=== PATIENT | female | born 1985 | race African-American/Black ===

== ENCOUNTER 2017-03-31 16:11 | Emergency (ER) | payer MEDICAID, OTHER ==
[2017-03-31 16:40] VITALS: BP 125/98
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
--- NOTE | 2017-04-01 10:08 | CR ---
Lumbar spine: AP and lateral views of the lumbar spine were obtained. Diffuse Schmorl's node deformities are seen. Vertebral body heights are otherwise maintained. Mild scoliosis is present. Pedicles as well as transverse and spinous processes are intact. Sacroiliac joints are unremarkable. No subluxation or fracture is seen. Impression: 1. Diffuse Schmorl's node deformities and minimal scoliosis. Diagnostic code #2
== END 2017-03-31 19:02 | disposition home or self-care (01) ==
LOC: JD.ED 16:11
DX: S39.012A Strain of muscle, fascia and tendon of lower back, initial encounter (principal); X50.0XXA Overexertion from strenuous movement or load, initial encounter
CPT/HCPCS: 72100; 72100-26; 81001; 81025; 99283

== ENCOUNTER 2017-10-20 20:28 | Emergency (ER) | payer BC ==
[2017-10-20 20:38] VITALS: BP 143/92
[2017-10-20] MEDS ORDERED: Sodium Chloride 0.9% 1,000 ML IV ONE (21:00)
[2017-10-20] MEDS ORDERED: HYDROmorphone 0.5 MG/0.5 ML Syringe IVPUSH ONE (21:00)
--- NOTE | 2017-10-20 21:12 | EDM.PDOC ---
ED HPI GENERAL MEDICAL PROBLEM - General Chief Complaint: Upper Extremity Injury/Pain Stated Complaint: poss arm pains Time Seen by Provider: 10/20/17 20:36 Source of Information: Reports: Patient, RN Notes Reviewed History Limitations: Reports: No Limitations - History of Present Illness INITIAL COMMENTS - FREE TEXT/NARRATIVE: The patient states that she has sickle cell disease, and has suffered numerous sickle cell crises over her life. She moved from [facility] to the [facility] in 2012, and has suffered only one sickle cell crisis since moving here. She states that she is ordinarily treated with IV fluid and pain medication, and her crisis usually resolves quickly. The patient takes prophylactic folic acid. She states that she developed whole body pain, and particularly right upper extremity pain yesterday, 10/19/2017. She took Tylenol, and her pain was adequately controlled, however, today her pain is worse, and her right upper extremity pain is now "unbearable". She states that her current symptoms are similar to prior sickle cell crises. No recent illness. She states that she has had a decreased appetite, and notes a bitter taste in her mouth since yesterday. No recent fever, chills, nausea, vomiting, constipation, diarrhea, or urinary symptoms. No recent shortness of breath, chest pain, or palpitations. 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 A 2-view chest radiograph obtained 05/05/2017 was negative. 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 ED EXAM, GENERAL - Physical Exam Exam: See Below Exam Limited By: No Limitations General Appearance: Alert, WD/WN, No Apparent Distress Eye Exam: Bilateral Eye: Normal Inspection Ears: Normal External Exam, Hearing Grossly Normal Nose: Normal Inspection, No Blood Throat/Mouth: Normal Inspection, Normal Lips, Normal Voice, No Airway Compromise Head: Atraumatic, Normocephalic Neck: Normal Inspection, Full Range of Motion Respiratory/Chest: No Respiratory Distress, Lungs Clear, Normal Breath Sounds, No Accessory Muscle Use Cardiovascular: Normal Peripheral Pulses, Regular Rate, Rhythm, No Gallop, No JVD, No Murmur, No Rub Peripheral Pulses: 4+: Radial (L), Radial (R) GI/Abdominal: Normal Bowel Sounds, Soft, Non-Tender, No Organomegaly, No Distention, No Abnormal Bruit, No Mass (Female) Exam: Deferred Rectal (Female) Exam: Deferred Back Exam: Normal Inspection, Full Range of Motion, NT Extremities: Normal Inspection, Normal Range of Motion, Non-Tender, No Pedal Edema, Normal Capillary Refill Neurological: Alert, Oriented, Normal Cognition, No Motor/Sensory Deficits Psychiatric: Normal Affect Skin Exam: Warm, Dry, Intact, Normal Color, No Rash Course - Vital Signs Last Recorded V/S: Last Vital Signs Temp 36.1 C 10/20/17 20:35 Pulse 93 10/20/17 20:35 Resp BP 143/92 H 10/20/17 20:35 Pulse Ox 100 10/20/17 20:35 - Orders/Labs/Meds Meds: Medications Discontinued Medications Generic Name Dose Route Start Last Admin Trade Name Freq PRN Reason Stop Dose Admin Hydromorphone HCl 0.5 mg 10/20/17 21:00 10/20/17 21:14 Dilaudid IVPUSH 10/20/17 21:01 0.5 mg ONETIME ONE Administration Sodium Chloride 1,000 mls @ 999 mls/hr 10/20/17 21:00 12 21:13 Normal Saline IV 10/20/17 22:00 999 mls/hr ONETIME ONE Administration - Re-Assessments/Exams Free Text/Narrative Re-Assessment/Exam: 10/20/17 21:02 The patient presents with whole body pain, and particularly, pain of her entire right upper extremity, consistent with numerous previous sickle cell crises. I have ordered 1 L normal saline bolus, 0.5 mg IV Dilaudid, and supplemental oxygen at 4-6 L per NC. I expect that the patient will require repeated doses of Dilaudid. Current guidelines do not recommend any particular blood or imaging studies, unless an infection is suspected, which is not in this case. 10/20/17 22:17 The patient is just finishing 1 L normal saline. She states that she feels "all better", and is ready to go home. I will have her follow-up with Dr. Lisa Gaviria as a PCP. Departure - Departure Time of Disposition: 22:18 Disposition: Home, Self-Care 01 Condition: Good Clinical Impression: Sickle cell crisis - Discharge Information Referrals: PCP,None [Primary Care Provider] - Lisa Gaviria MD [Physician] - Forms: ED Department Discharge Additional Instructions: You were seen in the emergency room for whole-body pain, in particular, extreme right arm pain. You were treated for a sickle cell crisis with IV fluid and IV pain medication. Your symptoms significantly improved. We recommend that you continue taking folic acid daily. We also recommend that you take a multivitamin WITHOUT iron, but DOES include Vitamin D and Calcium, daily. These are available [id number], but talk to your pharmacist to find the right one. Stay well hydrated. Continue to take your rifampin daily, as previously prescribed. Follow-up with Dr. Lisa Gaviria as a primary care physician. If any other problems, please do not hesitate to return to the ER.
== END 2017-10-20 22:30 | disposition home or self-care (01) ==
LOC: JD.ED 20:28
DX: E87.1 Hypo-osmolality and hyponatremia (principal); Z79.899 Other long term (current) drug therapy
CPT/HCPCS: 96361; 96374; 99284; J1170; J7040; 99283

== ENCOUNTER 2017-10-21 10:57 | Emergency (ER) | payer BC ==
[2017-10-21] MEDS ORDERED: Ondansetron 4 MG/2 ML SDV IVPUSH ONE (11:29)
[2017-10-21] MEDS ORDERED: Sodium Chloride 0.9% 1,000 ML IV ONE ×2 (11:29→13:26)
[2017-10-21] MEDS ORDERED: HYDROmorphone 0.5 MG/0.5 ML Syringe IVPUSH ONE (11:29)
[2017-10-21] MEDS ORDERED: Sodium Chloride 0.9% 10 ML Syringe FLUSH PRN (11:29)
--- NOTE | 2017-10-21 11:45 | EDM.PDOC ---
ED HPI GENERAL MEDICAL PROBLEM - General Chief Complaint: Upper Extremity Injury/Pain Stated Complaint: R ARM PAIN Time Seen by Provider: 10/21/17 11:19 Source of Information: Reports: Patient, Old Records (recent ER visit) History Limitations: Reports: No Limitations - History of Present Illness INITIAL COMMENTS - FREE TEXT/NARRATIVE: 31 year old female presents for evaluation and treatment of right arm pain. Patient reports the pain extends from her shoulder and involves her entire right arm. Patient has a past medical history of sickle cell disease. She believes she is in a sickle cell crisis today. Reports she has been experiencing right arm pain for the last 3 days. She was seen in the ER last night. Given IV fluids, Dilaudid and oxygen. Reports she experienced nausea from the Dilaudid. Pain improved and she felt comfortable going home. Reports this morning the pain returned. She attempted to take tylenol with no symptom relief. Denies any chest pain, shortness of breath, nausea, vomiting, abdominal pain, dizziness or lightheadedness. No numbness or tingling in the extremity. Reports decreased range of motion to the right extremity due to pain. Duration: Day(s): (3) Location: Reports: Upper Extremity, Right Quality: Reports: Same as Previous Episode Associated Symptoms: Reports: Headaches. 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 THERAPIST: Reports: Acetaminophen Other Treatments CHILD AND ADOLESCENT THERAPIST: tylenol Right Arm Pain Score (Numeric/FACES): 10 - Related Data Allergies Allergy/AdvReac Type Severity Reaction Status Date / Time No Known Allergies Allergy Verified 10/20/17 20:34 Home Meds: Home Meds Folic Acid [FA-8] 0.8 mg PO DAILY 11/15/16 [History] Rifampin 600 mg PO DAILY #120 cap 09/30/17 [Rx] Acetaminophen/oxyCODONE [Percocet 325-5 MG] 1 tab PO Q6H PRN #20 tablet [Rx] Ondansetron [Zofran] 4 mg PO Q6H PRN #20 tab 10/21/17 [Rx] 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 Denies: Numbness, Tingling ED EXAM, GENERAL - Physical Exam Exam: See Below Exam Limited By: No Limitations General Appearance: Alert, WD/WN, Moderate Distress Eye Exam: Bilateral Eye: Normal Inspection Ears: Normal External Exam Respiratory/Chest: No Respiratory Distress, Lungs Clear, Normal Breath Sounds Cardiovascular: Normal Peripheral Pulses, Regular Rate, Rhythm, No Murmur Peripheral Pulses: 1+: Radial (L), Radial (R), Posterior Tibial (L), Posterior Tibial (R), Dorsalis Pedis (L), Dorsalis Pedis (R) GI/Abdominal: Normal Bowel Sounds, Soft, Non-Tender Extremities: Normal Inspection, Limited Range of Motion (right arm due to pain) Neurological: Alert, Oriented, Normal Cognition Psychiatric: Normal Affect, Normal Mood Skin Exam: Warm, Dry. No: Erythema Course - Vital Signs Last Recorded V/S: Last Vital Signs Temp 36.3 C 10/21/17 11:12 Pulse 86 10/21/17 11:12 Resp 20 10/21/17 11:12 BP 112/94 H 10/21/17 11:12 Pulse Ox 100 10/21/17 11:12 - Orders/Labs/Meds Orders: Active Orders 24 hr Category Date Time Status Oxygen Therapy [RC] ASDIRECTED Care 10/21/17 11:29 Active Peripheral IV Care [RC] . DIRECTED Care 10/21/17 11:29 Active Sodium Chloride 0.9% [Saline Flush] Med 10/21/17 11:29 Active 10 ml FLUSH ASDIRECTED PRN Peripheral IV Insertion Adult [OM.PC] Routine Oth 12/22/17 11:29 Ordered Medication Orders Sodium Chloride (Saline Flush) 10 ml FLUSH ASDIRECTED PRN PRN Reason: Keep Vein Open Last Admin: 10/21/17 12:44 Dose: 10 ml Labs: Laboratory Tests 10/21/17 10/21/17 10/21/17 Range/Units 11:56 11:56 13:45 WBC 7.42 (3.98-10.04) K/mm3 RBC 5.56 H (3.98-5.22) M/mm3 Hgb 12.7 (11.2-15.7) gm/L Hct 35.4 (34.1-44.9) % MCV 63.7 L (79.4-94.8) fl MCH 22.8 L (25.6-32.2) pg MCHC 35.9 H (32.2-35.5) g/dl RDW Std Deviation 44.5 (36.4-46.3) fL Plt Count 222 (182-369) K/mm3 MPV 10.3 (9.4-12.3) fl Neutrophils % (Manual) 66 H (40-60) % Band Neutrophils % 0 (0-10) % Lymphocytes % (Manual) 32 (20-40) % Atypical Lymphs % 0 % Monocytes % (Manual) 2 (2-10) % Eosinophils % (Manual) 0 L (0.7-5.8) % Basophils % (Manual) 0 L (0.1-1.2) Platelet Estimate Adequate Hypochromasia 2+ moderate Poikilocytosis 1+ slight Anisocytosis 2+ moderate Microcytosis 2+ moderate Target Cells Many RBC Morph Comment Not Reportable Sodium 139 (136-145) mEq/L Potassium 3.9 (3.5-5.1) mEq/L Chloride 104 (98-107) mEq/L Carbon Dioxide 27 (21-32) mEq/L Anion Gap 11.9 (5-15) BUN 9 (7-18) mg/dL Creatinine 0.7 (0.55-1.02) mg/dL Est Cr Clr Drug Dosing 98.09 mL/min Estimated GFR (MDRD) > 60 (>60) mL/min BUN/Creatinine Ratio 12.9 L (14-18) Glucose 98 (74-106) mg/dL Calcium 9.2 (8.5-10.1) mg/dL Total Bilirubin 0.6 (0.2-1.0) mg/dL AST 21 (15-37) U/L ALT 25 (14-59) U/L Alkaline Phosphatase 69 (46-116) U/L Creatine Kinase 46 (26-192) U/L C-Reactive Protein 2.2 H* (<1.0) mg/dL Total Protein 7.3 (6.4-8.2) g/dl Albumin 3.7 (3.4-5.0) g/dl Globulin 3.6 gm/dL Albumin/Globulin Ratio 1.0 (1-2) Urine Color Yellow (Yellow) Urine Appearance Clear (Clear) Urine pH 7.0 (5.0-8.0) Ur Specific [place] 1.020 (1.005-1.030) Urine Protein Negative (Negative) Urine Glucose (UA) Negative (Negative) Urine Ketones Negative (Negative) Urine Occult Blood Negative (Negative) Urine Nitrite Negative (Negative) Urine Bilirubin Negative (Negative) Urine Urobilinogen 0.2 (0.2-1.0) Ur Leukocyte Esterase Negative (Negative) Urine RBC 0-5 (0-5) /hpf Urine WBC 0-5 (0-5) /hpf Ur Epithelial Cells 0-5 (0-5) /hpf Urine Bacteria Rare (FEW) /hpf Urine Mucus Not seen (FEW) /hpf Meds: Medications Generic Name Dose Route Start Last Admin Trade Name Dior PRN Reason Stop Dose Admin Sodium Chloride 10 ml 10/21/17 11:29 10/21/17 12:44 Saline Flush FLUSH 10 ml ASDIRECTED PRN Administration Keep Vein Open Discontinued Medications Generic Name Dose Route Start Last Admin Trade Name Dior PRN Reason Stop Dose Admin Diphenhydramine HCl 25 mg 10/21/17 12:23 10/21/17 12:44 Benadryl IVPUSH 10/21/17 12:24 Not Given ONETIME ONE Hydromorphone HCl 0.5 mg 10/21/17 11:29 10/21/17 11:52 Dilaudid IVPUSH 10/21/17 11:30 0.5 mg ONETIME ONE Administration Sodium Chloride 1,000 mls @ 999 mls/hr 10/21/17 11:29 10/21/17 11:53 Normal Saline IV 10/21/17 12:29 999 mls/hr ONETIME ONE Administration Sodium Chloride 1,000 mls @ 999 mls/hr 10/21/17 13:26 10/21/17 13:36 Normal Saline IV 10/21/17 14:26 999 mls/hr ONETIME ONE Administration Ondansetron HCl 4 mg 10/21/17 11:29 10/21/17 11:52 Zofran IVPUSH 10/21/17 11:30 4 mg ONETIME ONE Administration - Radiology Interpretation Free Text/Narrative:: chest [address] Banuelos: nothing acute is seen on two-view chest x-ray. - Re-Assessments/Exams Free Text/Narrative Re-Assessment/Exam: 10/21/17 12:30 I checked on the patient. Her pain is well-controlled with 0.5 mg IV Dilaudid. She did complain of some burning with the IV Zofran. She does have a few small welts near her IV site. No chest pain, shortness of breath, throat swelling or throat pain. Over 25 mrem IV Benadryl. 10/21/17 13:26 Patient declined the Benadryl. Discussed disposition with the patient. She would like to go home today. Offered her admission. She would like to go home with stronger pain medication. She would like to return if her symptoms worsen. 10/21/17 14:30 Patient continues to have little to no pain at this time. She would like to go today. I will give her prescription for Percocet and she is instructed to return to the ER immediately if her symptoms change or worsen. Departure - Departure Time of Disposition: 14:30 Disposition: Home, Self-Care 01 Condition: Fair Clinical Impression: Sickle cell crisis - Discharge Information Prescriptions: Acetaminophen/oxyCODONE [Percocet 325-5 MG] 1 tab PO Q6H PRN #20 tablet PRN Reason: Pain Ondansetron [Zofran] 4 mg PO Q6H PRN #20 tab PRN Reason: Nausea Referrals: PCP,None [Primary Care Provider] - Lisa Gaviria MD [Physician] - Forms: ED Department Discharge, ED Return to Work/School Form Additional Instructions: you were given medication the ER that can affect your ability to drive and operate machinery. Do not drive or operate machinery within 12 hours of taking prescription narcotic pain medication. Percocet 1-2 tabs every 4-6 hours as needed for severe pain. Do not drive or operate machinery within 12 hours of taking Percocet. Percocet can be habit- forming, I recommend you take as few of these as needed for pain. Do not take more than 4 g of Tylenol from all sources on day. Zofran 1 tab sublingual every 6 hours as needed for nausea. Rest. Make sure to get plenty of fluids. Follow up with your primary care provider next week. He did not have when Vasquez recommend Dr. Gaviria at the [facility]. Please call to schedule her. Please return to the ER immediately if your symptoms change or worsen. - My Orders Last 24 Hours: My Active Orders 10/21/17 11:29 Oxygen Therapy [RC] ASDIRECTED Peripheral IV Care [RC] . DIRECTED Sodium Chloride 0.9% [Saline Flush] 10 ml FLUSH ASDIRECTED PRN Peripheral IV Insertion Adult [OM.PC] Routine - Assessment/Plan Last 24 Hours: My Active Orders 10/21/17 11:29 Oxygen Therapy [RC] ASDIRECTED Peripheral IV Care [RC] . DIRECTED Sodium Chloride 0.9% [Saline Flush] 10 ml FLUSH ASDIRECTED PRN Peripheral IV Insertion Adult [OM.PC] Routine
[2017-10-21] MEDS ORDERED: diphenhydrAMINE 50 MG/ML SDV IVPUSH ONE (12:23)
--- NOTE | 2017-10-21 13:29 | CR ---
Chest: Two views of the chest were obtained. Comparison: Previous chest x-ray of 05/05/17. Heart size and mediastinum are normal. Lungs are clear. Bony structures are unremarkable. Impression: 1. Nothing acute is seen on two-view chest x-ray. Diagnostic code #1
[2017-10-21 15:39] VITALS: BP 111/74
== END 2017-10-21 15:32 | disposition home or self-care (01) ==
LOC: JD.ED 10:57
DX: D57.00 Hb-SS disease with crisis, unspecified (principal); M79.601 Pain in right arm; Z79.899 Other long term (current) drug therapy
CPT/HCPCS: 36415; 71020; 80053; 81001; 82550; 85025; 86140; 94761; 96361; 96374; 96375; 99284; J1170; J2405; J7040; J7050

== ENCOUNTER 2017-10-22 11:48 | Observation (INO) | payer BC ==
[2017-10-22] MEDS ORDERED: Sodium Chloride 0.9% 10 ML Syringe FLUSH PRN ×2 (11:56→15:52)
[2017-10-22] MEDS ORDERED: HYDROmorphone 0.5 MG/0.5 ML Syringe IVPUSH ONE (11:56)
[2017-10-22] MEDS ORDERED: Ondansetron 4 MG/2 ML SDV IVPUSH ONE (11:56)
[2017-10-22] MEDS ORDERED: LORazepam 2 MG/ML MDV IVPUSH ONE (12:09)
[2017-10-22] MEDS ORDERED: Sodium Chloride 0.9% 1,000 ML IV ONE ×2 (12:09→15:50)
--- NOTE | 2017-10-22 12:15 | EDM.PDOC ---
ED HPI GENERAL MEDICAL PROBLEM - General Stated Complaint: R ARM PAIN Time Seen by Provider: 10/22/17 12:02 Source of Information: Reports: Patient History Limitations: Reports: No Limitations - History of Present Illness INITIAL COMMENTS - FREE TEXT/NARRATIVE: Patient is a 31-year-old female who presents to the ED complaining or right arm pain and pain to the right clavicle/neck region. Patient has a history of sickle cell and has been evaluated here on 2 additional occasions here in the ED. Diagnosed with sickle cell crisis. Patient states she has had multiple episodes of sickle cell crisis with similar symptoms. Pain is quite severe currently 8 out of 10. She is very anxious. There is no increased swelling or signs of infection present. She has full motor sensory distally. There's been no recent injury to affected extremity contributing to the pain. In addition she denies being . She is from [facility] and also has a recent diagnosis of latent TB by "apparent ppd test with negative chest x-ray. She is on folic acid and also rifampin. She denies any smoking history, alcohol use, or recreational drug use. Her primary care provider she has been referred to is Dr. Gaviria. Right Arm Pain Score (Numeric/FACES): 0 - Related Data Allergies Allergy/AdvReac Type Severity Reaction Status Date / Time No Known Allergies Allergy Verified 10/20/17 20:34 Home Meds: Home Meds Folic Acid [FA-8] 0.8 mg PO DAILY 11/15/16 [History] Rifampin 600 mg PO DAILY #120 cap 09/30/17 [Rx] Acetaminophen/oxyCODONE [Percocet 325-5 MG] 1 tab PO Q6H PRN #20 tablet [Rx] Ondansetron [Zofran] 4 mg PO Q6H PRN #20 tab 10/21/17 [Rx] Past Medical History [employer] History: Reports: Musculoskeletal History: Reports: Back Pain, Chronic Other Musculoskeletal History: october with back issues Hematologic History: Reports: Sickle Cell Anemia - Infectious Disease History Infectious Disease History: Reports: TB, Other (See Below) Other Infectious Disease History: patient states she has "Latent TB" and is currently taking meds x 4 months for this. 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 ED EXAM, GENERAL - Physical Exam Exam: See Below Exam Limited By: No Limitations General Appearance: Alert, WD/WN, Moderate Distress Eye Exam: Bilateral Eye: PERRL Ears: Hearing Grossly Normal Nose: Normal Inspection Throat/Mouth: Normal Voice, No Airway Compromise Neck: Normal Inspection, Supple Respiratory/Chest: No Respiratory Distress, Lungs Clear, Normal Breath Sounds, No Accessory Muscle Use, Chest Non-Tender Cardiovascular: Normal Peripheral Pulses, Regular Rate, Rhythm, No Murmur Peripheral Pulses: 2+: Radial (L), Radial (R) GI/Abdominal: Normal Bowel Sounds, Soft, Non-Tender, No Organomegaly, No Distention Extremities: Normal Inspection, Normal Range of Motion, No Pedal Edema, Normal Capillary Refill, Other (Diffuse tenderness to the left arm. No redness, no swelling, no sensorimotor deficits.) Neurological: Alert, Oriented, CN II-XII Intact, Normal Cognition, No Motor/ Sensory Deficits Psychiatric: Normal Affect, Anxious Skin Exam: Warm, Dry, Intact, Normal Color, No Rash Course - Vital Signs Last Recorded V/S: Last Vital Signs Temp 102.5 F H 10/22/17 18:10 Pulse 123 H 10/22/17 18:59 Resp 18 10/22/17 18:10 BP 119/86 10/22/17 18:59 Pulse Ox 99 10/22/17 18:12 - Orders/Labs/Meds Orders: Active Orders 24 hr Category Date Time Status Admission Status [Patient Status] [ADT] Routine ADT 10/22/17 17:53 Active Cardiac Monitoring [RC] . DIRECTED Care 10/22/17 17:53 Active Chest PE [Ang Chest] [CT] Stat Exams 10/22/17 15:46 Taken VL Duplex Upr Ext Veins Ltd Rt [US] Stat Exams 10/22/17 13:15 Taken CULTURE BLOOD [BC] Stat Lab 10/22/17 16:46 Ordered CULTURE BLOOD [BC] Stat Lab 10/22/17 16:46 Ordered Sodium Chloride 0.9% [Saline Flush] Med 10/22/17 15:52 Active 10 ml FLUSH ONETIME PRN Blood Culture x2 Reflex Set [OM.PC] Stat Oth 10/22/17 16:46 Ordered Peripheral IV Insertion Adult [OM.PC] Stat Oth 10/22/17 11:55 Ordered Medication Orders Acetaminophen (Tylenol) 650 mg PO Q4H PRN PRN Reason: Pain (Mild 1-3)/fever Hydrocodone Bitart/Acetaminophen ([place] 325-5 Mg) 1 tab PO Q4H PRN PRN Reason: Pain (moderate 4-6) Albuterol/Ipratropium (Duoneb 3.0-0.5 Mg/3 Ml) 3 ml NEB Q4H PRN PRN Reason: Shortness Of Breath/wheezing Bisacodyl (Dulcolax) 5 mg PO DAILY PRN PRN Reason: Constipation Docusate Sodium (Colace) 100 mg PO BID PRN PRN Reason: Constipation Heparin Sodium (Porcine) (Heparin Sodium) 5,000 units SUBCUT Q8H [facility] Last Admin: 10/22/17 19:03 Dose: 5,000 units Hydralazine HCl (Apresoline) 20 mg IVPUSH Q4H PRN PRN Reason: Hypertension Hydroxyurea (Hydrea) 390 mg PO DAILY UVALDO Hydroxyurea (Hydrea) 390 mg PO ONETIME ONE Stop: 10/22/17 18:31 Dextrose/Sodium Chloride (Dextrose 5%-1/2 Ns) 1,000 mls @ 100 mls/hr IV ASDIRECTED [facility] Last Admin: 10/22/17 18:59 Dose: 100 mls/hr Promethazine HCl 12.5 mg/ (Sodium Chloride) 50.5 mls @ 100 mls/hr IV Q6H PRN PRN Reason: Nausea/Vomiting Lorazepam (Ativan) 1 mg IV Q6H PRN PRN Reason: Anxiety Lorazepam (Ativan) 2 mg IVPUSH Q4H PRN PRN Reason: Seizures Magnesium Sulfate (Pharmacy To Dose - Magnesium Replacement) 1 dose .XX ASDIRECTED [facility] Metoprolol Tartrate (Lopressor) 5 mg IVPUSH Q4H PRN PRN Reason: Tachycardia Last Admin: 10/22/17 18:59 Dose: 5 mg Morphine Sulfate (Morphine) 1 mg IVPUSH Q4H PRN PRN Reason: Pain (severe 7-10) Stop: 10/27/17 18:16 Non-Formulary Medication (Folic Acid [Fa-8]) 0.8 mg PO DAILY [facility] Non-Formulary Medication (Rifampin [Rifampin]) 600 mg PO DAILY [facility] Ondansetron HCl (Zofran) 4 mg IV Q4H PRN PRN Reason: Nausea/Vomiting Oxycodone HCl (Oxycontin) 10 mg PO Q12HR [facility] Potassium Chloride (Pharmacy To Dose - Potassium Replacement) 1 dose .XX ASDIRECTED [facility] Senna/Docusate Sodium (Senna Plus) 1 tab PO BID PRN PRN Reason: Constipation Sodium Chloride (Saline Flush) 10 ml FLUSH ONETIME PRN PRN Reason: IV FLUSH Last Admin: 10/22/17 16:27 Dose: 10 ml Temazepam (Restoril) 15 mg PO BEDTIME PRN PRN Reason: Sleep Labs: Laboratory Tests 10/22/17 10/22/17 10/22/17 Range/Units 12:15 12:15 12:15 WBC 7.08 (3.98-10.04) K/mm3 RBC 5.85 H (3.98-5.22) M/mm3 Hgb 13.4 (11.2-15.7) gm/L Hct 37.4 (34.1-44.9) % MCV 63.9 L (79.4-94.8) fl MCH 22.9 L (25.6-32.2) pg MCHC 35.8 H (32.2-35.5) g/dl RDW Std Deviation 44.6 (36.4-46.3) fL Plt Count 205 (182-369) K/mm3 MPV 10.2 (9.4-12.3) fl Neut % (Auto) 80.6 H (34.0-71.1) % Lymph % (Auto) 15.8 L (19.3-51.7) % [place] % (Auto) 3.2 L (4.7-12.5) % Eos % (Auto) 0.1 L (0.7-5.8) Baso % (Auto) 0.0 L (0.1-1.2) % Neut # (Auto) 5.70 (1.56-6.13) K/mm3 Lymph # (Auto) 1.12 L (1.18-3.74) K/mm3 [place] # (Auto) 0.23 L (0.24-0.36) K/mm3 Eos # (Auto) 0.01 L (0.04-0.36) K/mm3 Baso # (Auto) 0.00 L (0.01-0.08) K/mm3 Manual Slide Review Abnormal smear PT 10.1 (8.0-13.0) SECONDS INR 0.93 APTT (22-36) SECONDS D-Dimer, Quantitative (0.19-0.59) mg/L Sodium 140 (136-145) mEq/L Potassium 4.0 (3.5-5.1) mEq/L Chloride 104 (98-107) mEq/L Carbon Dioxide 25 (21-32) mEq/L Anion Gap 15.0 (5-15) BUN 8 (7-18) mg/dL Creatinine 0.7 (0.55-1.02) mg/dL Est Cr Clr Drug Dosing TNP Estimated GFR (MDRD) > 60 (>60) mL/min BUN/Creatinine Ratio 11.4 L (14-18) Glucose 92 (74-106) mg/dL Calcium 9.5 (8.5-10.1) mg/dL Total Bilirubin 1.9 H (0.2-1.0) mg/dL AST 21 (15-37) U/L ALT 25 (14-59) U/L Alkaline Phosphatase 74 (46-116) U/L C-Reactive Protein 2.2 H* (<1.0) mg/dL Total Protein 8.0 (6.4-8.2) g/dl Albumin 4.0 (3.4-5.0) g/dl Globulin 4.0 gm/dL Albumin/Globulin Ratio 1.0 (1-2) HCG, Qual (NEGATIVE) HCG, Quant mIU/mL Urine Color (Yellow) Urine Appearance (Clear) Urine pH (5.0-8.0) Ur Specific [place] (1.005-1.030) Urine Protein (Negative) Urine Glucose (UA) (Negative) Urine Ketones (Negative) Urine Occult Blood (Negative) Urine Nitrite (Negative) Urine Bilirubin (Negative) Urine Urobilinogen (0.2-1.0) Ur Leukocyte Esterase (Negative) Urine RBC (0-5) /hpf Urine WBC (0-5) /hpf Ur Epithelial Cells (0-5) /hpf Urine Bacteria (FEW) /hpf Urine Mucus (FEW) /hpf 10/22/17 10/22/17 10/22/17 Range/Units 12:15 12:15 12:15 WBC (3.98-10.04) K/mm3 RBC (3.98-5.22) M/mm3 Hgb (11.2-15.7) gm/L Hct (34.1-44.9) % MCV (79.4-94.8) fl MCH (25.6-32.2) pg MCHC (32.2-35.5) g/dl RDW Std Deviation (36.4-46.3) fL Plt Count (182-369) K/mm3 MPV (9.4-12.3) fl Neut % (Auto) (34.0-71.1) % Lymph % (Auto) (19.3-51.7) % [place] % (Auto) (4.7-12.5) % Eos % (Auto) (0.7-5.8) Baso % (Auto) (0.1-1.2) % Neut # (Auto) (1.56-6.13) K/mm3 Lymph # (Auto) (1.18-3.74) K/mm3 [place] # (Auto) (0.24-0.36) K/mm3 Eos # (Auto) (0.04-0.36) K/mm3 Baso # (Auto) (0.01-0.08) K/mm3 Manual Slide Review PT (8.0-13.0) SECONDS INR APTT 24 (22-36) SECONDS D-Dimer, Quantitative 1.25 H (0.19-0.59) mg/L Sodium (136-145) mEq/L Potassium (3.5-5.1) mEq/L Chloride (98-107) mEq/L Carbon Dioxide (21-32) mEq/L Anion Gap (5-15) BUN (7-18) mg/dL Creatinine (0.55-1.02) mg/dL Est Cr Clr Drug Dosing Estimated GFR (MDRD) (>60) mL/min BUN/Creatinine Ratio (14-18) Glucose (74-106) mg/dL Calcium (8.5-10.1) mg/dL Total Bilirubin (0.2-1.0) mg/dL AST (15-37) U/L ALT (14-59) U/L Alkaline Phosphatase (46-116) U/L C-Reactive Protein (<1.0) mg/dL Total Protein (6.4-8.2) g/dl Albumin (3.4-5.0) g/dl Globulin gm/dL Albumin/Globulin Ratio (1-2) HCG, Qual (NEGATIVE) HCG, Quant 1.0 mIU/mL Urine Color (Yellow) Urine Appearance (Clear) Urine pH (5.0-8.0) Ur Specific [place] (1.005-1.030) Urine Protein (Negative) Urine Glucose (UA) (Negative) Urine Ketones (Negative) Urine Occult Blood (Negative) Urine Nitrite (Negative) Urine Bilirubin (Negative) Urine Urobilinogen (0.2-1.0) Ur Leukocyte Esterase (Negative) Urine RBC (0-5) /hpf Urine WBC (0-5) /hpf Ur Epithelial Cells (0-5) /hpf Urine Bacteria (FEW) /hpf Urine Mucus (FEW) /hpf 10/22/17 10/22/17 Range/Units 12:15 13:53 WBC (3.98-10.04) K/mm3 RBC (3.98-5.22) M/mm3 Hgb (11.2-15.7) gm/L Hct (34.1-44.9) % MCV (79.4-94.8) fl MCH (25.6-32.2) pg MCHC (32.2-35.5) g/dl RDW Std Deviation (36.4-46.3) fL Plt Count (182-369) K/mm3 MPV (9.4-12.3) fl Neut % (Auto) (34.0-71.1) % Lymph % (Auto) (19.3-51.7) % [place] % (Auto) (4.7-12.5) % Eos % (Auto) (0.7-5.8) Baso % (Auto) (0.1-1.2) % Neut # (Auto) (1.56-6.13) K/mm3 Lymph # (Auto) (1.18-3.74) K/mm3 [place] # (Auto) (0.24-0.36) K/mm3 Eos # (Auto) (0.04-0.36) K/mm3 Baso # (Auto) (0.01-0.08) K/mm3 Manual Slide Review PT (8.0-13.0) SECONDS INR APTT (22-36) SECONDS D-Dimer, Quantitative (0.19-0.59) mg/L Sodium (136-145) mEq/L Potassium (3.5-5.1) mEq/L Chloride (98-107) mEq/L Carbon Dioxide (21-32) mEq/L Anion Gap (5-15) BUN (7-18) mg/dL Creatinine (0.55-1.02) mg/dL Est Cr Clr Drug Dosing Estimated GFR (MDRD) (>60) mL/min BUN/Creatinine Ratio (14-18) Glucose (74-106) mg/dL Calcium (8.5-10.1) mg/dL Total Bilirubin (0.2-1.0) mg/dL AST (15-37) U/L ALT (14-59) U/L Alkaline Phosphatase (46-116) U/L C-Reactive Protein (<1.0) mg/dL Total Protein (6.4-8.2) g/dl Albumin (3.4-5.0) g/dl Globulin gm/dL Albumin/Globulin Ratio (1-2) HCG, Qual Negative (NEGATIVE) HCG, Quant mIU/mL Urine Color [place] H (Yellow) Urine Appearance Clear (Clear) Urine pH 6.5 (5.0-8.0) Ur Specific [place] 1.020 (1.005-1.030) Urine Protein Negative (Negative) Urine Glucose (UA) Negative (Negative) Urine Ketones Trace H (Negative) Urine Occult Blood Negative (Negative) Urine Nitrite Positive H (Negative) Urine Bilirubin Negative (Negative) Urine Urobilinogen 2.0 H (0.2-1.0) Ur Leukocyte Esterase Negative (Negative) Urine RBC 0-5 (0-5) /hpf Urine WBC 0-5 (0-5) /hpf Ur Epithelial Cells 0-5 (0-5) /hpf Urine Bacteria Not seen (FEW) /hpf Urine Mucus Not seen (FEW) /hpf Meds: Medications Generic Name Dose Route Start Last Admin Trade Name Freq PRN Reason Stop Dose Admin Acetaminophen 650 mg 10/22/17 18:10 Tylenol PO Q4H PRN Pain (Mild 1-3)/fever Hydrocodone Bitart/Acetaminophen 1 tab 10/22/17 18:10 [place] 325-5 Mg PO Q4H PRN Pain (moderate 4-6) Albuterol/Ipratropium 3 ml 10/22/17 18:16 Duoneb 3.0-0.5 Mg/3 Ml NEB Q4H PRN Shortness Of Breath/wheezing Bisacodyl 5 mg 10/22/17 18:16 Dulcolax PO DAILY PRN Constipation Docusate Sodium 100 mg 10/22/17 18:16 Colace PO BID PRN Constipation Heparin Sodium (Porcine) 5,000 units 10/22/17 18:30 10/22/17 19:03 Heparin Sodium SUBCUT 5,000 units Q8H UVALDO Administration Hydralazine HCl 20 mg 10/22/17 18:20 Apresoline IVPUSH Q4H PRN Hypertension Hydroxyurea 390 mg 10/23/17 09:00 Hydrea PO DAILY UVALDO Hydroxyurea 390 mg 10/22/17 18:30 Hydrea PO 10/22/17 18:31 ONETIME ONE Dextrose/Sodium Chloride 1,000 mls @ 100 mls/hr 10/22/17 18:15 10/22/17 18:59 Dextrose 5%-1/2 Ns IV 100 mls/hr ASDIRECTED UVALDO Administration Promethazine HCl 12.5 mg/ 50.5 mls @ 100 mls/hr 10/22/17 18:16 Sodium Chloride IV Q6H PRN Nausea/Vomiting Lorazepam 1 mg 10/22/17 18:16 Ativan IV Q6H PRN Anxiety Lorazepam 2 mg 10/22/17 18:20 Ativan IVPUSH Q4H PRN Seizures Magnesium Sulfate 1 dose 10/22/17 18:30 Pharmacy To Dose - Magnesium Replacement .XX ASDIRECTED UVALDO Metoprolol Tartrate 5 mg 10/22/17 18:20 10/22/17 18:59 Lopressor IVPUSH 5 mg Q4H PRN Administration Tachycardia Morphine Sulfate 1 mg 10/22/17 18:10 Morphine IVPUSH 10/27/17 18:16 Q4H PRN Pain (severe 7-10) Non-Formulary Medication 0.8 mg 10/23/17 09:00 Folic Acid [Fa-8] PO DAILY [facility] Non-Formulary Medication 600 mg 10/23/17 09:00 Rifampin [Rifampin] PO DAILY U[facility]DO Ondansetron HCl 4 mg 10/22/17 18:16 Zofran IV Q4H PRN Nausea/Vomiting Oxycodone HCl 10 mg 10/22/17 21:00 Oxycontin PO Q12HR [facility] Potassium Chloride 1 dose 10/22/17 18:30 Pharmacy To Dose - Potassium Replacement .XX ASDIRECTED [facility] Senna/Docusate Sodium 1 tab 10/22/17 18:16 Senna Plus PO BID PRN Constipation Sodium Chloride 10 ml 10/22/17 15:52 10/22/17 16:27 Saline Flush FLUSH 10 ml ONETIME PRN Administration IV FLUSH Temazepam 15 mg 10/22/17 18:16 Restoril PO BEDTIME PRN Sleep Discontinued Medications Generic Name Dose Route Start Last Admin Trade Name Freq PRN Reason Stop Dose Admin Acetaminophen 975 mg 10/22/17 16:47 10/22/17 17:13 Tylenol PO 10/22/17 16:48 975 mg DAILY STA Administration Hydromorphone HCl 0.5 mg 10/22/17 11:56 10/22/17 12:19 Dilaudid IVPUSH 10/22/17 11:57 0.5 mg ONETIME ONE Administration Sodium Chloride 1,000 mls @ 500 mls/hr 10/22/17 12:09 10/22/17 12:30 Normal Saline IV 10/22/17 14:08 500 mls/hr ONETIME ONE Administration Sodium Chloride 1,000 mls @ 999 mls/hr 10/22/17 15:50 10/22/17 16:24 Normal Saline IV 10/22/17 16:50 999 mls/hr ONETIME ONE Administration Sodium Chloride 100 mls @ 80 mls/hr 10/22/17 16:00 10/22/17 16:27 Normal Saline IV 80 mls/hr ASDIRECTED [facility]VALDO Administration Iopamidol 100 ml 10/22/17 15:52 10/22/17 16:27 Isovue-370 (76%) IVPUSH 10/22/17 15:53 100 ml ONETIME ONE Administration Lorazepam 0.5 mg 10/22/17 12:09 10/22/17 12:24 Ativan IVPUSH 10/22/17 12:10 0.5 mg ONETIME ONE Administration Ondansetron HCl 4 mg 10/22/17 11:56 10/22/17 12:21 Zofran IVPUSH 10/22/17 11:57 4 mg ONETIME ONE Administration Pantoprazole Sodium 40 mg 10/22/17 18:30 10/22/17 19:04 Protonix Iv .XX 10/22/17 18:31 40 mg ONETIME ONE Administration Sodium Chloride 10 ml 10/22/17 11:56 10/22/17 12:20 Saline Flush FLUSH 10 ml ASDIRECTED PRN Administration Keep Vein Open - Re-Assessments/Exams Free Text/Narrative Re-Assessment/Exam: IV established with normal saline 500 mL per hour, Dilaudid 0.5 mg IVP, Ativan 0.5 mg IVP, and Zofran 4 mg IVP. Initial labs and studies include CBC, chem 14, hCG, coag studies UA, CRP, and EKG. Chest x-ray obtained with last ED visit this past week revealed no acute abnormalities. Wells criteria for PE low risk group 1.3% chance of PE in the ED population. PERC rule was positive. Cannot rule out PE. DDimer ordered. 10/22/17 12:48EKG sinus tachycardia rate of [address] changes noted. 10/22/17 13:17 Labs reviewed: White blood cell count 7.08, hemoglobin 13.4, MCV 63.9, platelet count 205, d-dimer 1.25, chemistry panel essentially normal. CRP 2.2. HCG was negative. Ordered ultrasound of the right upper extremity to rule out DVT. 1540 patient resting comfortably in bed. Pain is well controlled. Heart rate remains 125 sinus tachycardia with normotensive blood pressure. 1547 Ultrasound of the right upper extremity impression: no deep venous thrombosis seen. 1547 Ordered CTA of the Chest PE protocol. Ordered additional NS 1 liter 999mls /hr. 10/22/17 16:38CT of the chest: No pulmonary thromboembolic disease. Spleen is enlarged. 164 Reassessment, patient's pain is well-controlled. Remains tachycardic. Temperature recheck 101.f. Blood cultures 2 will be obtained. Ordered Tylenol 975 mg by mouth. [address] Raman, he has agreed to admit the patient. Per [facility] patient meets observation status. Patient will be admitted to the ICU with telemetry. Admission orders placed. Departure - Departure Time of Disposition: 17:58 Disposition: Refer to Observation Condition: Fair Clinical Impression: Sickle cell anemia with crisis, Fever of unknown origin, Tachycardia, Right arm pain - Discharge Information - My Orders Last 24 Hours: My Active Orders 10/22/17 11:55 Peripheral IV Insertion Adult [OM.PC] Stat 10/22/17 13:15 VL Duplex Upr Ext Veins Ltd Rt [US] Stat 10/22/17 15:46 Chest PE [Ang Chest] [CT] Stat 10/22/17 15:52 Sodium Chloride 0.9% [Saline Flush] 10 ml FLUSH ONETIME PRN 10/22/17 16:46 CULTURE BLOOD [BC] Stat CULTURE BLOOD [BC] Stat Blood Culture x2 Reflex Set [OM.PC] Stat 10/22/17 17:53 Admission Status [Patient Status] [ADT] Routine Cardiac Monitoring [RC] . DIRECTED - Assessment/Plan Last 24 Hours: My Active Orders 10/22/17 11:55 Peripheral IV Insertion Adult [OM.PC] Stat 10/22/17 13:15 VL Duplex Upr Ext Veins Ltd Rt [US] Stat 10/22/17 15:46 Chest PE [Ang Chest] [CT] Stat 10/22/17 15:52 Sodium Chloride 0.9% [Saline Flush] 10 ml FLUSH ONETIME PRN 10/22/17 16:46 CULTURE BLOOD [BC] Stat CULTURE BLOOD [BC] Stat Blood Culture x2 Reflex Set [OM.PC] Stat 10/22/17 17:53 Admission Status [Patient Status] [ADT] Routine Cardiac Monitoring [RC] . DIRECTED
[2017-10-22] MEDS ORDERED: Iopamidol 755 Mg/ML 100 ML Bottle IVPUSH ONE (15:52)
[2017-10-22] MEDS ORDERED: Sodium Chloride 0.9% 100 ML IV SCH (16:00)
[2017-10-22] MEDS ORDERED: Acetaminophen 325 MG Tab PO STA (16:47)
--- NOTE | 2017-10-22 18:04 | PCM.HP ---
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 She has been evaluated on 2 previous occasions in the emergency department with similar diagnosis. Patient reports no respiratory issues. She rates her pain at 8 out of 10. She denies any signs of swelling or infection. She further denies any numbness or tingling. Patient is not on any maintenance medications except for her latent TB with rifampin and folic acid. Patient reports no history of smoking, alcohol or illicit drug use. Her initial workup in emergency department shows a CBC remarkable for RBC of 5.85, MCV of 60.9, MCH of 22.9, MCHC of 35.8, neutrophils of 80.6%, lymphocytes of 15.8%, monocytes 30.2%, eosinophils of 0.1% and basophils of 0%. Her coagulation studies shows PT of 10.1, INR of 0.93, APPT of 24, and d-dimer 1.25. Her chemistry is remarkable for total bilirubin of 1.9 and CRP of 2.2. She is negative for test. Her UA is negative for urinary tract infection. Chest CTA and duplex ultrasound both negative for PE and DVT respectively. Patient is being admitted for medical management of sickle cell crisis. 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[employer]) H&P Review of Systems - Review of Systems: Review Of Systems: See Below General: Denies: Fever, Chills, Malaise, Weakness, Fatigue HEENT: Reports: No Symptoms Pulmonary: Denies: Shortness of Breath Cardiovascular: Denies: Chest Pain Gastrointestinal: Denies: Abdominal Pain, Decreased Appetite, Nausea, Stool Incontinence Genitourinary: Reports: No Symptoms Musculoskeletal: Reports: Arm Pain (right arm) Skin: Denies: Cyanosis, Jaundice, Mottled, Pallor, Diaphoresis, Bruising, Pruritis, Erythema Psychiatric: Denies: Depression, Anxiety, Agitation Neurological: Denies: Confusion, Dizziness, Headache, Numbness, Syncope, Difficulty Walking, Weakness, Gait Disturbance Hematologic/Lymphatic: Reports: Other (sickle cell disease) Immunologic: Reports: No Symptoms Exam - Exam Exam: See Below - Vital Signs Vital Signs: Last Vital Signs Temp 38.1 C 10/22/17 17:13 Pulse 136 H 10/22/17 16:26 Resp 24 H 10/22/17 16:26 BP 124/76 10/22/17 16:26 Pulse Ox 97 10/22/17 16:26 - Exam General: Alert, Oriented, Cooperative, Mild Distress HEENT: Conjunctiva Clear, EACs Clear, EOMI, Hearing Intact, Mucosa Moist & [place] , Nares Patent, Normal Nasal Septum, Posterior Pharynx Clear, Pupils Equal, Pupils Reactive Neck: Supple, Trachea Midline, +2 Carotid Pulse wo Bruit, Full Range of Motion Lungs: Clear to Auscultation, Normal Respiratory Effort Cardiovascular: Regular Rhythm, Tachycardia GI/Abdominal Exam: Normal Bowel Sounds, Soft, Non-Tender, No Organomegaly, No Distention, No Abnormal Bruit, No Mass (Female) Exam: Deferred Rectal (Female) Exam: Deferred Back Exam: Normal Inspection, Full Range of Motion Extremities: Normal Inspection, Normal Range of Motion, Non-Tender, No Pedal Edema, Normal Capillary Refill, Arm Pain (right arm) Peripheral Pulses: 3+: Posterior Tibial (L), Posterior Tibial (R), Dorsalis Pedis (L), Dorsalis Pedis (R) Skin: Warm, Dry, Intact Neuro Extensive - Mental Status: Oriented x3, Memory Intact Neuro Extensive - Motor, Sensory, Reflexes: CN II-XII Intact, Normal Gait Psychiatric: Alert, Normal Affect, Normal Mood - Patient Data Result Diagrams: 10/22/17 12:15 10/22/17 12:15 *Q Meaningful Use (ADM) - VTE *Q VTE Criteria *Q: - Stroke *Q Stroke Criteria *Q: - AMI *Q AMI Criteria *Q: Problem List Initiated/Reviewed/Updated: Yes Orders Last 24hrs: Medication Orders Sodium Chloride (Normal Saline) 100 mls @ 80 mls/hr IV ASDIRECTED [facility] Last Admin: 10/22/17 16:27 Dose: 80 mls/hr Sodium Chloride (Saline Flush) 10 ml FLUSH ASDIRECTED PRN PRN Reason: Keep Vein Open Last Admin: 10/22/17 12:20 Dose: 10 ml Sodium Chloride (Saline Flush) 10 ml FLUSH ONETIME PRN PRN Reason: IV FLUSH Last Admin: 10/22/17 16:27 Dose: 10 ml Assessment/Plan Comment:: Assessment/Plan: Acute: Sickle Cell Crisis - Carries a hx/o SCD - She originally from [facility] - No PCP and was seen in ED x3 now - She is not on maintenance medications - She is euvolemic so D5W1/2NS is appropriate for fluid maintenance - Scheduled and PRN pain medications - VTE prophylaxis is heparin 500- units subQ TID - Hydroxyurea 15mg/kg/day first dose now - Monitor for splenic sequestration Sinus Tachycardia with Fever - 2/2 Sickle Cell Crisis - HRs 130s-140s; Temp 38.3-39.2 - Chest CTA and Duplex U/S on Right Upper Arm negative for PE/DVT respectively - PRN Lopressor for HR > 115, Ativan for Anxiety, and NSAIDs/Tylenol for Antipyretic - On telemetry Elevated D-Dimer - D-Dimer of 1.25 - Chest CTA PE negative Splenomegaly - CT scan finding - CBC so far is stable - Monitor for splenic sequestration - Recommend influenza, meningo-ccocal and pneumonia vaccines if not already gotten Chronic: Sickle Cell Disease Back Pain Latent TB - On Rifampin and Folic Acid for Treatment Plan: Admit to the floor Routine AM Labs Resume Home Meds Additional orders as above Code status: 1 Possible d/c in Am if stable
[2017-10-22] MEDS ORDERED: Acetaminophen/HYDROcodone 325-5 MG Tab PO PRN (18:10)
[2017-10-22] MEDS ORDERED: Acetaminophen 325 MG Tab PO PRN (18:10)
[2017-10-22] MEDS ORDERED: Morphine 2 MG/ML Syringe IVPUSH PRN (18:10)
[2017-10-22] MEDS ORDERED: Docusate Sodium 100 MG Cap PO PRN (18:16)
[2017-10-22] MEDS ORDERED: LORazepam 2 MG/ML MDV IV PRN (18:16)
[2017-10-22] MEDS ORDERED: Promethazine 12.5 MG in Sodium Chloride 0.9% 50 ML IV PRN (18:16)
[2017-10-22] MEDS ORDERED: Albuterol/Ipratropium 3.0-0.5 MG/3 ML Neb Soln NEB PRN (18:16)
[2017-10-22] MEDS ORDERED: Bisacodyl 5 MG Tab PO PRN (18:16)
[2017-10-22] MEDS ORDERED: Ondansetron 4 MG/2 ML SDV IV PRN (18:16)
[2017-10-22] MEDS ORDERED: Temazepam 15 MG Cap PO PRN (18:16)
[2017-10-22] MEDS ORDERED: LORazepam 2 MG/ML MDV IVPUSH PRN (18:20)
[2017-10-22] MEDS ORDERED: Metoprolol Tartrate 5 MG/5 ML SDV IVPUSH PRN (18:20)
[2017-10-22] MEDS ORDERED: hydrALAZINE 20 MG/ML SDV IVPUSH PRN (18:20)
[2017-10-22] MEDS ORDERED: Pantoprazole 40 MG Vial ONE (18:30)
[2017-10-22] MEDS ORDERED: Hydroxyurea 500 MG Cap PO ONE ×3 (18:30→22:00)
[2017-10-22] MEDS: Dextrose 5%-0.45% NaCl 1,000 ML IV SCH (18:59)
[2017-10-22] MEDS: Heparin Sodium 5,000 Units/ML Vial SUBCUT SCH (19:03)
[2017-10-22] MEDS: oxyCODONE ER 10 MG TAB.ER PO SCH (21:25)
[2017-10-23] MEDS: Heparin Sodium 5,000 Units/ML Vial SUBCUT SCH ×2 (03:02→10:47)
[2017-10-23] MEDS: Dextrose 5%-0.45% NaCl 1,000 ML IV SCH (05:10)
--- NOTE | 2017-10-23 05:53 | PCM.DCSUM1 ---
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 She has been evaluated on 2 previous occasions in the emergency department with similar diagnosis. She was admitted for medical manegment of sickle cell crisis. - Discharge Data Discharge Date: 10/23/17 Discharge Disposition: Home, Self-Care 01 Condition: Good - Discharge Diagnosis/Problem(s) (1) Latent tuberculosis by skin test SNOMED Code(s): 234377290 ICD Code: R76.11 - NONSPECIFIC REACTION TO SKIN TEST W/O ACTIVE TUBERCULOSIS Status: Chronic (2) Fever SNOMED Code(s): 418619404 ICD Code: R50.9 - FEVER, UNSPECIFIED Status: Resolved Qualifiers: Fever type: unspecified Qualified Code(s): R50.9 - Fever, unspecified (3) Sickle cell crisis SNOMED Code(s): 854800531 ICD Code: D57.00 - HB-SS DISEASE WITH CRISIS, UNSPECIFIED Status: Resolved (4) Tachycardia SNOMED Code(s): 4866832 ICD Code: R00.0 - TACHYCARDIA, UNSPECIFIED Status: Resolved (5) Sickle cell disease SNOMED Code(s): 364435306 ICD Code: D57.1 - SICKLE-CELL DISEASE WITHOUT CRISIS Status: Chronic Qualifiers: Sickle-cell associated disorders: with unspecified crisis Qualified Code(s) : D57.00 - Hb-SS disease with crisis, unspecified; D57.0 - Hb-SS disease with crisis - Patient Summary/Data Operative Procedure(s) Performed: None Complications: None Consults: None Labs Pending at D/C: None Recommended Follow-up Testing/Procedures: None Planned Operative Procedure(s) after DC: None Hospital Course: Patient was primarily admitted for medical management of sickle cell crisis. She carried a hx/o sickle cell disease. She had been seen in ED 2 other times but was not put on maintenance medication. On admission, she was sent to the unit and supportive care was provided to include pain medications, hydroxyurea and heparin SubQ for DVT prophylaxis. Her hospital course was uncomplicated and the rest of her chronic medical illness remained stable during this admission. Patient was stable upon discharge. She was prescribed hydroxyurea 1000 mg by mouth daily for maintenance of her sickle cell disease. She was advised to follow-up with office director along with a repeat CBC in 2 weeks. She was further advised to come back or seek immediate care should her symptoms persist or get worse. Patient expressed understanding and in agreement with the plans as discussed above. All questions were answered. - Patient Instructions Diet: Usual Diet as Tolerated Activity: As Tolerated Driving: May Drive Today Showering/Bathing: May Shower Notify Provider of: Fever, Increased Pain, Nausea and/or Vomiting Other/Special Instructions: - Please resume all home medications as directed. - Recommend you follow a office director for you sickle cell disease. - Follow up with your doctor in 1 week. - Call your doctor for any questions or concerns after discharge - Discharge Plan Prescriptions/Med Rec: Hydroxyurea [Hydrea] 1,000 mg PO DAILY #30 cap Home Medications: Home Meds Folic Acid [FA-8] 0.8 mg PO DAILY 11/15/16 [History] Rifampin 600 mg PO DAILY #120 cap 09/30/17 [Rx] Acetaminophen/oxyCODONE [Percocet 325-5 MG] 1 tab PO Q6H PRN #20 tablet [Rx] Ondansetron [Zofran] 4 mg PO Q6H PRN #20 tab 10/21/17 [Rx] Hydroxyurea [Hydrea] 1,000 mg PO DAILY #30 cap 10/22/17 [Rx] Referrals: PCP,Unknown [Ordering Only Provider] - - Discharge Summary/Plan Comment DC Time >30 min.: No Discharge Summary/Plan Comment: Discharge to Home - General Info Date of Service: 10/23/17 Admission Dx/Problem (Free Text: Admission Diagnosis/Problem Admission Diagnosis/Problem Sickle cell-hemoglobin C disease Functional Status: Reports: Pain Controlled, Tolerating Diet, Ambulating, Urinating. Denies: New Symptoms - Review of Systems General: Denies: Fever, Weakness, Fatigue, Malaise HEENT: Reports: No Symptoms Pulmonary: Denies: Shortness of Breath, Pleuritic Chest Pain, Cough Cardiovascular: Denies: Chest Pain, Palpitations, Dyspnea on Exertion, Edema, Lightheadedness Gastrointestinal: Denies: Abdominal Pain, Nausea, Vomiting Genitourinary: Reports: No Symptoms Musculoskeletal: Denies: Arm Pain Skin: Denies: Cyanosis, Jaundice, Pallor, Diaphoresis, Bruising, Rash Neurological: Denies: Confusion, Dizziness, Headache, Syncope, Difficulty Walking, Weakness, Gait Disturbance Psychiatric: Denies: No Symptoms, Mood Lability, Anxiety, Hallucinations Systems Review Comment: No overnight or acute issues. She was clinically better this morning. She reported no new complaints. - Patient Data Vitals - Most Recent: Last Vital Signs Temp 36.8 C 10/23/17 03:24 Pulse 88 10/23/17 03:24 Resp 20 10/23/17 03:24 BP 108/71 10/23/17 03:24 Pulse Ox 98 10/23/17 03:24 Weight - Most Recent: 66.678 kg I&O - Last 24 hours: Intake & Output 10/22/17 10/22/17 10/23/17 14:59 22:59 06:59 Intake Total 1628 Output Total 1450 Balance 178 Lab Results - Last 24 hrs: Laboratory Results - last 24 hr 10/22/17 Range/Units 18:18 Creatine Kinase 55 (26-192) U/L Med Orders - Current: Current Medications Acetaminophen (Tylenol) 650 mg PO Q4H PRN PRN Reason: Pain (Mild 1-3)/fever Hydrocodone Bitart/Acetaminophen ([place] 325-5 Mg) 1 tab PO Q4H PRN PRN Reason: Pain (moderate 4-6) Albuterol/Ipratropium (Duoneb 3.0-0.5 Mg/3 Ml) 3 ml NEB Q4H PRN PRN Reason: Shortness Of Breath/wheezing Bisacodyl (Dulcolax) 5 mg PO DAILY PRN PRN Reason: Constipation Docusate Sodium (Colace) 100 mg PO BID PRN PRN Reason: Constipation Heparin Sodium (Porcine) (Heparin Sodium) 5,000 units SUBCUT Q8H [facility] Last Admin: 10/23/17 03:02 Dose: 5,000 units Hydralazine HCl (Apresoline) 20 mg IVPUSH Q4H PRN PRN Reason: Hypertension Hydroxyurea (Hydrea) 1,000 mg PO DAILY [facility] Dextrose/Sodium Chloride (Dextrose 5%-1/2 Ns) 1,000 mls @ 100 mls/hr IV ASDIRECTED [facility] Last Admin: 10/23/17 05:10 Dose: 100 mls/hr Promethazine HCl 12.5 mg/ (Sodium Chloride) 50.5 mls @ 100 mls/hr IV Q6H PRN PRN Reason: Nausea/Vomiting Lorazepam (Ativan) 1 mg IV Q6H PRN PRN Reason: Anxiety Lorazepam (Ativan) 2 mg IVPUSH Q4H PRN PRN Reason: Seizures Magnesium Sulfate (Pharmacy To Dose - Magnesium Replacement) 1 dose .XX ASDIRECTED [facility] Metoprolol Tartrate (Lopressor) 5 mg IVPUSH Q4H PRN PRN Reason: Tachycardia Last Admin: 10/22/17 18:59 Dose: 5 mg Morphine Sulfate (Morphine) 1 mg IVPUSH Q4H PRN PRN Reason: Pain (severe 7-10) Stop: 10/27/17 18:16 Non-Formulary Medication (Folic Acid [Fa-8]) 0.8 mg PO DAILY [facility] (Rifampin [Rifampin] 600 Mg)Own Med* 600 mg PO DAILY [facility] Ondansetron HCl (Zofran) 4 mg IV Q4H PRN PRN Reason: Nausea/Vomiting Oxycodone HCl (Oxycontin) 10 mg PO Q12HR [facility] Last Admin: 10/22/17 21:25 Dose: Not Given Potassium Chloride (Pharmacy To Dose - Potassium Replacement) 1 dose .XX ASDIRECTED [facility] Senna/Docusate Sodium (Senna Plus) 1 tab PO BID PRN PRN Reason: Constipation Sodium Chloride (Saline Flush) 10 ml FLUSH ONETIME PRN PRN Reason: IV FLUSH Last Admin: 10/22/17 16:27 Dose: 10 ml Temazepam (Restoril) 15 mg PO BEDTIME PRN PRN Reason: Sleep Discontinued Medications Acetaminophen (Tylenol) 975 mg PO DAILY STA Stop: 10/22/17 16:48 Last Admin: 10/22/17 17:13 Dose: 975 mg Hydromorphone HCl (Dilaudid) 0.5 mg IVPUSH ONETIME ONE Stop: 10/22/17 11:57 Last Admin: 10/22/17 12:19 Dose: 0.5 mg Hydroxyurea (Hydrea) 390 mg PO DAILY [facility] Hydroxyurea (Hydrea) 390 mg PO ONETIME ONE Stop: 10/22/17 18:31 Hydroxyurea (Hydrea) 500 mg PO ONETIME ONE Stop: 10/22/17 21:01 Hydroxyurea (Hydrea) 500 mg PO DAILY [facility] Hydroxyurea (Hydrea) 1,000 mg PO ONETIME ONE Stop: 10/22/17 22:01 Last Admin: 10/22/17 21:23 Dose: 1,000 mg Sodium Chloride (Normal Saline) 1,000 mls @ 500 mls/hr IV ONETIME ONE Stop: 10/22/17 14:08 Last Admin: 10/22/17 12:30 Dose: 500 mls/hr Sodium Chloride (Normal Saline) 1,000 mls @ 999 mls/hr IV ONETIME ONE Stop: 10/22/17 16:50 Last Admin: 10/22/17 16:24 Dose: 999 mls/hr Sodium Chloride (Normal Saline) 100 mls @ 80 mls/hr IV ASDIRECTED [facility] Last Admin: 10/22/17 16:27 Dose: 80 mls/hr Iopamidol (Isovue-370 (76%)) 100 ml IVPUSH ONETIME ONE Stop: 10/22/17 15:53 Last Admin: 10/22/17 16:27 Dose: 100 ml Lorazepam (Ativan) 0.5 mg IVPUSH ONETIME ONE Stop: 10/22/17 12:10 Last Admin: 10/22/17 12:24 Dose: 0.5 mg Ondansetron HCl (Zofran) 4 mg IVPUSH ONETIME ONE Stop: 10/22/17 11:57 Last Admin: 10/22/17 12:21 Dose: 4 mg Pantoprazole Sodium (Protonix Iv) 40 mg .XX ONETIME ONE Stop: 10/22/17 18:31 Last Admin: 10/22/17 19:04 Dose: 40 mg Sodium Chloride (Saline Flush) 10 ml FLUSH ASDIRECTED PRN PRN Reason: Keep Vein Open Last Admin: 10/22/17 12:20 Dose: 10 ml - Exam General: Reports: Alert, Oriented, Cooperative, No Acute Distress HEENT: Reports: Pupils Equal, Pupils Reactive, EOMI, Mucous Membr. Moist/[place] Neck: Reports: Supple, Trachea Midline, No JVD, No Thyromegaly Lungs: Reports: Clear to Auscultation, Normal Respiratory Effort Cardiovascular: Reports: Regular Rate, Regular Rhythm GI/Abdominal Exam: Normal Bowel Sounds, Soft, Non-Tender, No Organomegaly, No Distention, No Abnormal Bruit, No Mass (Female) Exam: Deferred Rectal (Female) Exam: Deferred Back Exam: Reports: Normal Inspection, Full Range of Motion Extremities: Normal Inspection, No Pedal Edema, Normal Capillary Refill Skin: Reports: Warm, Dry, Intact. Denies: Ecchymosis Neurological: Reports: No New Focal Deficit Psy/Mental Status: Reports: Alert, Normal Affect, Normal Mood *Q Meaningful Use (DIS) - VTE *Q VTE Criteria *Q: - Stroke *Q Stroke Criteria *Q: - AMI *Q AMI Criteria *Q:
[2017-10-23] MEDS ORDERED: Magnesium Sulfate/Water 2 GM in Premix Bag 1 BAG IV ONE (07:35)
[2017-10-23] MEDS: oxyCODONE ER 10 MG TAB.ER PO SCH (08:08)
[2017-10-23] MEDS ORDERED: Hydroxyurea 500 MG Cap PO SCH ×3 (09:00)
[2017-10-23] MEDS ORDERED: Folic Acid 1 MG Tab PO SCH (09:00)
[2017-10-23] MEDS ORDERED: Potassium Chloride 20 MEQ Tab.ER PO SCH (11:00)
[2017-10-23 12:07] VITALS: BP 106/74
--- NOTE | 2017-10-25 07:56 | US ---
Right arm venous ultrasound: Duplex and color flow imaging was obtained of the right internal jugular, subclavian, axillary, basilic, cephalic, brachial, ulnar and radial veins. Normal compression and phasic flow are seen. Normal augmentation is seen within the axillary through ulnar veins. Impression: 1. No evidence of venous thrombosis within the right upper extremity. Diagnostic code #1 I agree with preliminary report issued by [facility] ([facility] report finalized on 10/22/17, 4:15 PM Central Time)
--- NOTE | 2017-10-25 07:59 | CT ---
CT chest Technique: Multiple axial sections through the chest were obtained from above the lung apices inferiorly through the lung bases. Intravenous contrast was utilized. Study has been performed as a pulmonary angiogram protocol. Findings: Enlarged inhomogeneous left lobe of the thyroid gland is seen. Mediastinum and hilar regions show no adenopathy or mass. No findings of pulmonary embolism are seen. No pericardial thickening is seen. Spleen size is mildly prominent. Other visualized portions of the upper abdominal structures are within normal limits. Lungs are clear. No parenchymal densities are seen. No pleural effusions are identified. Bone window settings were reviewed which appear within normal limits for the patient's age. Impression: 1. Enlarged inhomogeneous left lobe of the thyroid gland. Ultrasound recommended to further evaluate. 2. Nonspecific enlargement of the spleen. 3. No findings of pulmonary embolism with other normal findings as noted above. Diagnostic code #9 I mostly agree with preliminary report issued by [facility] with additional finding as noted above and recommendation as noted above ([facility] report finalized on 10/22/17, 5:30 PM Central Time
== END 2017-10-23 13:37 | disposition home or self-care (01) ==
LOC: JD.ED 11:48 → JD.ICU 17:56
PROVIDERS: ADMIT Internal Medicine; ATTEND Internal Medicine
DX: D57.219 Sickle-cell/Hb-C disease with crisis, unspecified (principal); G89.29 Other chronic pain; M54.9 Dorsalgia, unspecified; R00.0 Tachycardia, unspecified; R16.1 Splenomegaly, not elsewhere classified; Z79.899 Other long term (current) drug therapy
CPT/HCPCS: 36415; 71275; 80048; 80053; 81001; 82550; 83735; 84702; 84703; 85025; 85379; 85610; 85730; 86140; 87040; 93005; 93971; 96361; 96374; 96375; 99285; A9270; C9113; J1170; J1644; J2060; J2405; J7030; J7040; J7042; J7050; Q9967; 93010; 96365; 96366; 96372; 99284-25; G0378; J3475; J3490

== ENCOUNTER 2017-10-25 13:58 | Emergency (ER) | payer BC ==
[2017-10-25 15:57] VITALS: BP 105/75
[2017-10-25] MEDS ORDERED: Acetaminophen 325 MG Tab PO STA (15:57)
--- NOTE | 2017-10-25 18:12 | EDM.PDOC ---
ED HPI GENERAL MEDICAL PROBLEM - General Chief Complaint: Fever Stated Complaint: FEVER CHILLS SENT BY DR GAVIRIA Time Seen by Provider: 10/25/17 18:08 Source of Information: Reports: Patient, Family (spouse) History Limitations: Reports: No Limitations - History of Present Illness INITIAL COMMENTS - FREE TEXT/NARRATIVE: 31-year-old female presents to the ED for evaluation of febrile illness and acute onset of nausea vomiting since taking her hydroxyurea tablet. This lady was admitted to the hospital on 22 October with a sickle cell crisis involving her right upper extremity. She improved with fluids and pain management and was discharged on hydroxyurea 1000 mg a day on 23 October.. She states that every time she takes it she feels fine but within the hour she is ill with fever chills nausea vomiting. She seen Dr. Gaviria in clinic today who was concerned with her fever and center onwards to the ED for further evaluation. He took a lengthy period of time for me to get to her due to the busyness of the ED today as her second provider was not available today. She is febrile on examination. But she denies headache sore throat cough or sputum production no diarrhea no abdominal pain at this time. Also no further pain in her right upper extremity it has resolved completely. Patient strongly believes it's the hydroxyurea tablet is making her ill. He could certainly cause nausea and vomiting but to my knowledge is not known to cause of fever. Onset: Sudden (Yesterday.) Onset Date: 10/24/17 (Illness started after taking hydroxyurea tablet.) Onset Time: 08:00 Duration: Hour(s): Location: Reports: Generalized (Nausea vomiting chills and fever.) Quality: Reports: Other (As above) Severity: Severe (Take several hours to start to feel better.) Improves with: Reports: None Worsens with: Reports: Other Context: Reports: Other. Denies: Activity (Taking medication), Exercise, Lifting, Sick Contact, Trauma (See history of present illness) Associated Symptoms: Reports: No Other Symptoms, Fever/Chills, Loss of Appetite , Malaise. 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 below) generalized Pain Score (Numeric/FACES): 4 - Related Data Allergies Allergy/AdvReac Type Severity Reaction Status Date / Time No Known Allergies Allergy Verified 12/26/17 14:16 Home Meds: Home Meds Folic Acid [FA-8] 0.8 mg PO DAILY 11/15/16 [History] Rifampin 600 mg PO DAILY #120 cap 09/30/17 [Rx] Acetaminophen/oxyCODONE [Percocet 325-5 MG] 1 tab PO Q6H PRN #20 tablet [Rx] Ondansetron [Zofran] 4 mg PO Q6H PRN #20 tab 10/21/17 [Rx] Hydroxyurea [Hydrea] 1,000 mg PO DAILY #30 cap 10/22/17 [Rx] Past Medical History 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 Denies: Decreased Appetite, Weight Loss HEENT: Reports: No Symptoms Respiratory: Reports: No Symptoms, Other Cardiovascular: Reports: No Symptoms Endocrine: Reports: No Symptoms GI/Abdominal: Reports: Abdominal Pain (After taking the hydroxyurea tablet she develops abdominal pain nausea vomiting and fever.) : Reports: No Symptoms Musculoskeletal: Reports: Back Pain Skin: Reports: No Symptoms (Chronic low back pain) Neurological: Reports: No Symptoms Psychiatric: Reports: No Symptoms ED EXAM, GI/ABD - Physical Exam Exam: See Below Exam Limited By: No Limitations General Appearance: Alert, WD/WN, No Apparent Distress, Other (He still feels warm to palpation but nurses report temperatures 37.4.) Eyes: Bilateral: Normal Appearance (S No jaundice.) Ears: Normal TMs Throat/Mouth: Normal Inspection, Normal Lips, Normal Teeth, Normal Oropharynx, Other Head: Atraumatic, Normocephalic Neck: Normal Inspection, Supple, Non-Tender. No: Lymphadenopathy (L), Lymphadenopathy (R) Respiratory/Chest: No Respiratory Distress, Lungs Clear, Normal Breath Sounds, No Accessory Muscle Use Cardiovascular: Normal Peripheral Pulses, Regular Rate, Rhythm, No Edema, No Gallop, No Murmur GI/Abdominal Exam: Normal Bowel Sounds, Soft, No Organomegaly, No Distention Extremities: Other (Is no evidence of development of a phlebitis at IV stick in the antecubital fossa on the right side.) Neurological: Alert, Oriented, CN II-XII Intact, Normal Cognition, Normal Gait Psychiatric: Normal Affect, Normal Mood Skin Exam: Warm, Dry, Intact, Normal Color, No Rash Course - Vital Signs Last Recorded V/S: Last Vital Signs Temp 37.1 C 10/25/17 18:35 Pulse 106 H 10/25/17 18:35 Resp 18 10/25/17 18:35 BP 105/75 10/25/17 15:56 Pulse Ox 97 10/25/17 18:35 - Orders/Labs/Meds Labs: Laboratory Tests 10/25/17 10/25/17 Range/Units 18:22 18:22 WBC 4.42 (3.98-10.04) K/mm3 RBC 5.26 H (3.98-5.22) M/mm3 Hgb 12.1 (11.2-15.7) gm/L Hct 33.2 L (34.1-44.9) % MCV 63.1 L (79.4-94.8) fl MCH 23.0 L (25.6-32.2) pg MCHC 36.4 H (32.2-35.5) g/dl RDW Std Deviation 43.0 (36.4-46.3) fL Plt Count 105 L (182-369) K/mm3 MPV TNP Neutrophils % (Manual) 90 H (40-60) % Band Neutrophils % 0 (0-10) % Lymphocytes % (Manual) 4 L (20-40) % Atypical Lymphs % 1 % Monocytes % (Manual) 3 (2-10) % Eosinophils % (Manual) 2 (0.7-5.8) % Basophils % (Manual) 0 L (0.1-1.2) Platelet Estimate Decreased Plt Morphology Comment Normal Poikilocytosis 2+ moderate Anisocytosis 1+ slight Microcytosis 1+ slight Macrocytosis 1+ slight Target Cells 2+ moderate Tear Drop Cells 1+ slight RBC Morph Comment Abn Sodium 135 L (136-145) mEq/L Potassium 3.5 (3.5-5.1) mEq/L Chloride 102 (98-107) mEq/L Carbon Dioxide 20 L (21-32) mEq/L Anion Gap 16.5 H (5-15) BUN 12 (7-18) mg/dL Creatinine 0.9 (0.55-1.02) mg/dL Est Cr Clr Drug Dosing 76.30 mL/min Estimated GFR (MDRD) > 60 (>60) mL/min BUN/Creatinine Ratio 13.3 L (14-18) Glucose 98 (74-106) mg/dL Calcium 8.3 L (8.5-10.1) mg/dL Total Bilirubin 2.1 H (0.2-1.0) mg/dL AST 164 H (15-37) U/L ALT 150 H (14-59) U/L Alkaline Phosphatase 63 (46-116) U/L C-Reactive Protein 5.7 H* (<1.0) mg/dL Total Protein 7.0 (6.4-8.2) g/dl Albumin 3.4 (3.4-5.0) g/dl Globulin 3.6 gm/dL Albumin/Globulin Ratio 0.9 L (1-2) Meds: Medications Discontinued Medications Generic Name Dose Route Start Last Admin Trade Name Freq PRN Reason Stop Dose Admin Acetaminophen 975 mg 10/25/17 15:57 10/25/17 16:00 Tylenol PO 10/25/17 15:58 975 mg NOW STA Administration - Radiology Interpretation Free Text/Narrative:: 31-year-old female presents to the ED at the request of her primary care physician Dr. Gaviria. Patient presented there for follow-up after discharge from hospital the of this month. She was admitted on the with acute sickle cell crisis involving her right upper extremity of which she's experienced couple times in the past. She improved with pain management and IV fluids. She was discharged home the following day. Dr. pablo valdez felt after consultation with second grade teacher that she might benefit from hydroxyurea thousand milligrams a day to prevent stress sickle cell crisis from occurring again. Patient reports that every time she takes the medication she develops fever chills nausea and vomiting. On consultation with PA all of these affects can occur as a side effect of hydroxyurea. She still felt felt mildly febrile on my examination but complete review of systems documents no signs of ADD illness. I'm therefore going to have routine labs performed and I will call her with the results at home. She of course was not take the hydroxyurea any further until consultation with second grade teacher. - Re-Assessments/Exams Free Text/Narrative Re-Assessment/Exam: 10/25/17 19:30 Labs are back revealing a white count of 4.42. Hemoglobin is 12.1. Differential is 90% neutrophils and no bands. Platelet count is 105,000. There is 2+ poikilocytosis 1+ anisocytosis 1+ microcytosis 1+ macrocytosis and 2 + target cells. There is also 1+ teardrop cells suggesting recent homolysis. Sodium 135 potassium 3.5. Chloride 102 bicarbonate is 20. Anion gap is slightly elevated at 16.5.. BUNs 12 creatinine is 0.9. GFR is greater than 60. Glucose is 98 calcium is 8.3 total bilirubin is elevated at 2.1 due to I suspect hemolysis. AST is 164 ALT is 150. C-reactive protein is 5.7 suggesting an underlying infective process. I spoke with the patient at home about the above findings and advised if she continues to have fever she is to report back to the ED in the next 48 hours. At present she states she feels well. Departure - Departure Time of Disposition: 18:08 Disposition: Home, Self-Care 01 Condition: Fair Clinical Impression: Febrile illness Adverse effects of medication Qualifiers: Encounter type: initial encounter Qualified Code(s): T88.7XXA - Unspecified adverse effect of drug or medicament, initial encounter - Discharge Information Referrals: Lisa Gaviria MD [Primary Care Provider] - Forms: ED Department Discharge Additional Instructions: Evaluation the emergency room today in regards to persistent illness precipitated by taking hydroxyurea tablets for the last 2 days. Hydroxyurea was prescribed because of sickle cell crisis involving her right arm. She states she 's finding first thing in the morning and after she takes the tablet she's sick within the hour nausea vomiting and febrile. Tylenol given in the ED seem to break the fever but she still or feeling warm to touch. For lab work will be done and I will contact you with the results when it becomes available in about an hour or so. Obviously no further use of hydroxyurea is advised. Dr. Raman indicated that you're to follow up with a second grade teacher in [facility].
== END 2017-10-25 18:35 | disposition home or self-care (01) ==
LOC: JD.ED 13:58
DX: R50.2 Drug induced fever (principal); T45.1X5A Adverse effect of antineoplastic and immunosuppressive drugs, initial encounter; D57.00 Hb-SS disease with crisis, unspecified; Z79.899 Other long term (current) drug therapy
CPT/HCPCS: 36415; 80053; 85025; 86140; 99285; A9270; 99283

== ENCOUNTER 2017-10-28 09:55 | Emergency (ER) | payer BC ==
[2017-10-28 10:10] VITALS: BP 114/77
[2017-10-28] MEDS ORDERED: Sodium Chloride 0.9% 10 ML Syringe FLUSH PRN (10:25)
[2017-10-28] MEDS ORDERED: Famotidine 20 MG/2 ML SDV IVPUSH ONE (10:26)
[2017-10-28] MEDS ORDERED: methylPREDNISolone Sodium Succinate 125 MG/2 ML SDV IVPUSH ONE (10:27)
[2017-10-28] MEDS ORDERED: diphenhydrAMINE 50 MG/ML SDV IVPUSH ONE (10:27)
[2017-10-28] MEDS ORDERED: Sodium Chloride 0.9% 1,000 ML IV SCH (10:30)
[2017-10-28] MEDS ORDERED: Ondansetron 4 MG/2 ML SDV IVPUSH ONE (10:56)
--- NOTE | 2017-10-28 10:57 | EDM.PDOC ---
ED HPI GENERAL MEDICAL PROBLEM - General Chief Complaint: Respiratory Problem Stated Complaint: DIFFICULTY BREATHING AND ITCHING Time Seen by Provider: 10/28/17 10:15 Source of Information: Reports: Patient History Limitations: Reports: No Limitations - History of Present Illness INITIAL COMMENTS - FREE TEXT/NARRATIVE: The patient presents with sudden onset shortness of breath, itching and chest pain. She was bathing her son when this started. She also has a headache. She has a history of sickle cell disease. She has been admitted last week for a crisis. She was put on hydroxyurea. She did not do well with that. She would vomit from that. She stopped that last week. She has been running a low grade temp at home. She has no cough, abdominal pain, nausea, vomiting, numbness or weakness. She has no history of DVT or PE. She is also complaining of itching. Her whole body is itchy but she has no rash. She has no swelling in her throat. Onset: Sudden Duration: Minutes: Location: Reports: Chest Quality: Reports: Sharp Severity: Mild Improves with: Reports: None Worsens with: Reports: None Associated Symptoms: Reports: Chest Pain, Fever/Chills, Shortness of Breath. 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 Denies: Cough Cardiovascular: Reports: Chest Pain Endocrine: Reports: No Symptoms GI/Abdominal: Reports: No Symptoms : Reports: No Symptoms Musculoskeletal: Reports: No Symptoms ED EXAM, GENERAL - Physical Exam Exam: See Below Exam Limited By: No Limitations General Appearance: Alert, No Apparent Distress Ears: Normal External Exam Nose: Normal Inspection Throat/Mouth: Normal Inspection Head: Atraumatic, Normocephalic Neck: Normal Inspection Respiratory/Chest: No Respiratory Distress, Lungs Clear, Normal Breath Sounds Cardiovascular: Regular Rate, Rhythm, No Edema, No Murmur GI/Abdominal: Soft, Non-Tender, No Organomegaly, No Mass Back Exam: Normal Inspection Extremities: Normal Inspection EKG INTERPRETATION EKG Date: 10/28/17 Time: 10:48 Rhythm: NSR Rate (Beats/Min): 87 [place]: Normal P-Wave: Present QRS: Normal ST-T: Normal QT: Normal Course - Vital Signs Last Recorded V/S: Last Vital Signs Temp 97.4 F 10/28/17 10:03 Pulse 100 10/28/17 10:03 Resp 40 H 10/28/17 10:03 BP 114/77 10/28/17 10:03 Pulse Ox 100 10/28/17 10:03 - Orders/Labs/Meds Orders: Active Orders 24 hr Category Date Time Status Cardiac Monitoring [RC] . DIRECTED Care 10/28/17 10:25 Active EKG Documentation Completion [RC] STAT Care 10/28/17 10:26 Active Peripheral IV Care [RC] . DIRECTED Care 10/28/17 10:26 Active Sodium Chloride 0.9% [Normal Saline] 1,000 ml Med 10/28/17 10:30 Active IV .BOLUS Sodium Chloride 0.9% [Normal Saline] 100 ml Med 10/28/17 12:45 Active IV ASDIRECTED Sodium Chloride 0.9% [Saline Flush] Med 10/28/17 10:25 Active 10 ml FLUSH ASDIRECTED PRN Peripheral IV Insertion Adult [OM.PC] Stat Oth 10/28/17 10:25 Ordered Medication Orders Sodium Chloride (Normal Saline) 1,000 mls @ 1,000 mls/hr IV .BOLUS UVALDO Last Admin: 10/28/17 10:39 Dose: 1,000 mls/hr Sodium Chloride (Normal Saline) 100 mls @ 60 mls/hr IV ASDIRECTED UVALDO Last Admin: 10/28/17 12:50 Dose: 60 mls/hr Sodium Chloride (Saline Flush) 10 ml FLUSH ASDIRECTED PRN PRN Reason: Keep Vein Open Last Admin: 10/28/17 10:40 Dose: 10 ml Labs: Laboratory Tests 10/28/17 10/28/17 10/28/17 Range/Units 11:25 11:25 11:25 WBC 4.07 (3.98-10.04) K/mm3 RBC 4.52 (3.98-5.22) M/mm3 Hgb 10.5 L (11.2-15.7) gm/L Hct 29.1 L (34.1-44.9) % MCV 64.4 L (79.4-94.8) fl MCH 23.2 L (25.6-32.2) pg MCHC 36.1 H (32.2-35.5) g/dl RDW Std Deviation 43.6 (36.4-46.3) fL Plt Count 121 L (182-369) K/mm3 MPV TNP Neut % (Auto) 75.3 H (34.0-71.1) % Lymph % (Auto) 20.6 (19.3-51.7) % [place] % (Auto) 3.2 L (4.7-12.5) % Eos % (Auto) 0.2 L (0.7-5.8) Baso % (Auto) 0.5 (0.1-1.2) % Neut # (Auto) 3.06 (1.56-6.13) K/mm3 Lymph # (Auto) 0.84 L (1.18-3.74) K/mm3 [place] # (Auto) 0.13 L (0.24-0.36) K/mm3 Eos # (Auto) 0.01 L (0.04-0.36) K/mm3 Baso # (Auto) 0.02 (0.01-0.08) K/mm3 Manual Slide Review Abnormal smear D-Dimer, Quantitative 13.06 H (0.19-0.59) mg/L Sodium 140 (136-145) mEq/L Potassium 3.1 L (3.5-5.1) mEq/L Chloride 105 (98-107) mEq/L Carbon Dioxide 23 (21-32) mEq/L Anion Gap 15.1 H (5-15) BUN 10 (7-18) mg/dL Creatinine 0.8 (0.55-1.02) mg/dL Est Cr Clr Drug Dosing 85.83 mL/min Estimated GFR (MDRD) > 60 (>60) mL/min BUN/Creatinine Ratio 12.5 L (14-18) Glucose 116 H (74-106) mg/dL Calcium 8.1 L (8.5-10.1) mg/dL Total Bilirubin 2.1 H (0.2-1.0) mg/dL AST 115 H (15-37) U/L ALT 129 H (14-59) U/L Alkaline Phosphatase 57 (46-116) U/L Troponin I < 0.017 (0.00-0.056) ng/mL Total Protein 6.9 (6.4-8.2) g/dl Albumin 3.4 (3.4-5.0) g/dl Globulin 3.5 gm/dL Albumin/Globulin Ratio 1.0 (1-2) Meds: Medications Generic Name Dose Route Start Last Admin Trade Name Freq PRN Reason Stop Dose Admin Sodium Chloride 1,000 mls @ 1,000 mls/hr 10/28/17 10:30 10/28/17 10:39 Normal Saline IV 1,000 mls/hr .BOLUS UVALDO Administration Sodium Chloride 100 mls @ 60 mls/hr 10/28/17 12:45 10/28/17 12:50 Normal Saline IV 60 mls/hr ASDIRECTED UVALDO Administration Sodium Chloride 10 ml 10/28/17 10:25 10/28/17 10:40 Saline Flush FLUSH 10 ml ASDIRECTED PRN Administration Keep Vein Open Discontinued Medications Generic Name Dose Route Start Last Admin Trade Name Freq PRN Reason Stop Dose Admin Diphenhydramine HCl 50 mg 10/28/17 10:27 10/28/17 10:43 Benadryl IVPUSH 10/28/17 10:28 50 mg ONETIME ONE Administration Famotidine 20 mg 10/28/17 10:26 10/28/17 10:46 Pepcid IVPUSH 10/28/17 10:27 20 mg ONETIME ONE Administration Sodium Chloride 1,000 mls @ 1,000 mls/hr 10/28/17 12:32 10/28/17 13:09 Normal Saline IV 10/28/17 13:31 1,000 mls/hr ONETIME ONE Administration Iopamidol 100 ml 10/28/17 12:42 10/28/17 12:50 Isovue-370 (76%) IVPUSH 10/28/17 12:43 100 ml ONETIME ONE Administration Lorazepam 0.5 mg 10/28/17 11:05 10/28/17 11:08 Ativan IVPUSH 10/28/17 11:06 0.5 mg STAT STA Administration Lorazepam Confirm 10/28/17 11:07 10/28/17 11:09 Ativan Administered 10/28/17 11:08 Not Given Dose 2 mg .ROUTE .STK-MED ONE Methylprednisolone Sodium Succinate 125 mg 10/28/17 10:27 10/28/17 10:41 Solu-Medrol IVPUSH 10/28/17 10:28 125 mg ONETIME ONE Administration Ondansetron HCl 4 mg 10/28/17 10:56 10/28/17 11:05 Zofran IVPUSH 10/28/17 10:57 4 mg ONETIME ONE Administration Sodium Chloride 10 ml 10/28/17 12:42 10/28/17 12:50 Saline Flush FLUSH 10/28/17 12:43 10 ml ONETIME ONE Administration - Re-Assessments/Exams Free Text/Narrative Re-Assessment/Exam: 10/28/17 11:37 I ordered an IV NS 1L bolus, solu-medrol 125mg IV, pepcid 20mg IV, benadryl 50mg IV, and labs. She did not react well to the benadryl. She was shivering and making noises. I ordered some ativan and that helped. Her EKG shows a NSR with no acute changes. I am waiting on the rest of the results. 10/28/17 14:08 Her Hgb was a little low at 10.5. Her K was a little low at 3.1. Her total bili was elevated at 2.1 with elevated AST fo 115 and elevated ALT of 129. Her troponin is negative. Her D-dimer was elevate at 13.06. I ordered a CT angio of her chest. The CT showed no findings of pulmonary embolism. Spleen again noted to be enlarged. Inhomogenous left lobe of the thyroid gland for which ultrasound has been previously recommended. Nothing acute is otherwise seen on CT study of the chest performed as a pulmonary angiogram protocol. She feels better. I will discharge her home and follow up with Dr Gaviria and have her take a multivitamin with K because it is low. Departure - Departure Time of Disposition: 14:15 Disposition: Home, Self-Care 01 Condition: Good Clinical Impression: Sickle cell disease Qualifiers: Sickle-cell associated disorders: with unspecified crisis Qualified Code(s): D57.00 - Hb-SS disease with crisis, unspecified; D57.0 - Hb-SS disease with crisis Adverse effects of medication Qualifiers: Encounter type: initial encounter Qualified Code(s): T88.7XXA - Unspecified adverse effect of drug or medicament, initial encounter Chest pain Qualifiers: Chest pain type: unspecified Qualified Code(s): R07.9 - Chest pain, unspecified Dyspnea Qualifiers: Dyspnea type: other forms of dyspnea Qualified Code(s): R06.09 - Other forms of dyspnea - Discharge Information Referrals: PCP,None [Primary Care Provider] - Forms: ED Department Discharge Additional Instructions: Take pepcid daily for 5 days. Continue the rifampin as prescribed. Follow up with Dr Gaviria in 1 week. I have an US of your thyroid scheduled for Tuesday at 10am. Please come at 9:30am to register. Please return if you are worse. - My Orders Last 24 Hours: My Active Orders 10/28/17 10:25 Cardiac Monitoring [RC] . DIRECTED Sodium Chloride 0.9% [Saline Flush] 10 ml FLUSH ASDIRECTED PRN Peripheral IV Insertion Adult [OM.PC] Stat 10/28/17 10:26 EKG Documentation Completion [RC] STAT Peripheral IV Care [RC] . DIRECTED 10/28/17 10:30 Sodium Chloride 0.9% [Normal Saline] 1,000 ml IV .BOLUS 10/28/17 12:45 Sodium Chloride 0.9% [Normal Saline] 100 ml IV ASDIRECTED - Assessment/Plan Last 24 Hours: My Active Orders 10/28/17 10:25 Cardiac Monitoring [RC] . DIRECTED Sodium Chloride 0.9% [Saline Flush] 10 ml FLUSH ASDIRECTED PRN Peripheral IV Insertion Adult [OM.PC] Stat 10/28/17 10:26 EKG Documentation Completion [RC] STAT Peripheral IV Care [RC] . DIRECTED 10/28/17 10:30 Sodium Chloride 0.9% [Normal Saline] 1,000 ml IV .BOLUS 10/28/17 12:45 Sodium Chloride 0.9% [Normal Saline] 100 ml IV ASDIRECTED
[2017-10-28] MEDS ORDERED: LORazepam 2 MG/ML SDV IVPUSH STA (11:05)
[2017-10-28] MEDS ORDERED: LORazepam 2 MG/ML SDV ONE (11:07)
[2017-10-28] MEDS ORDERED: Sodium Chloride 0.9% 1,000 ML IV ONE (12:32)
[2017-10-28] MEDS ORDERED: Iopamidol 755 Mg/ML 100 ML Bottle IVPUSH ONE (12:42)
[2017-10-28] MEDS ORDERED: Sodium Chloride 0.9% 10 ML Syringe FLUSH ONE (12:42)
[2017-10-28] MEDS ORDERED: Sodium Chloride 0.9% 100 ML IV SCH (12:45)
--- NOTE | 2017-10-28 13:51 | CT ---
CT chest Technique: Multiple axial sections through the chest were obtained. Intravenous contrast was utilized. Study has been performed as a pulmonary angiogram protocol. Comparison: Previous CT pulmonary angiogram at 10/22/17. Findings: Pulmonary arteries are well opacified. No filling defects are seen to indicate pulmonary embolism. Spleen appears prominent in size no craniocaudal measurement can be given as spleen was not completely included on the study. Left lobe of the thyroid gland is again noted to be inhomogeneous. Mediastinum and hilar regions show no adenopathy or mass. No pericardial thickening is seen. Lungs are clear. Impression: 1. No findings of pulmonary embolism. 2. Spleen again noted to be enlarged. 3. Inhomogeneous left lobe of the thyroid gland for which ultrasound has been previously recommended. 4. Nothing acute is otherwise seen on CT study of the chest performed as a pulmonary angiogram protocol. Diagnostic code #9
== END 2017-10-28 14:31 | disposition home or self-care (01) ==
LOC: JD.ED 09:55
DX: R07.9 Chest pain, unspecified (principal); R06.09 Other forms of dyspnea; L29.9 Pruritus, unspecified; T45.0X5A Adverse effect of antiallergic and antiemetic drugs, initial encounter; E04.1 Nontoxic single thyroid nodule; D57.00 Hb-SS disease with crisis, unspecified; Z79.2 Long term (current) use of antibiotics
CPT/HCPCS: 36415; 71275; 80053; 84484; 85025; 85379; 93005; 96361; 96374; 96375; 99285; J1200; J2060; J2405; J2930; J7030; J7040; J7050; Q9967; 99284